=== PATIENT | male | born 1985 | race Caucasian/White ===

== ENCOUNTER 2017-01-27 15:49 | Emergency (ER) | payer BC ==
[~2017-01-27 15:49] MED LIST: AUGMENTIN875 M1; CIPRODEX OTIC7.5 ML OT; FLEXERIL10 MG PO; FLOXIN10 ML; FLOXIN10 ML AU; HYDROCODON-ACE1 EAC7 PO; HYDROCODONE 10/325 PO; JANUVIA; LORTAB 5-325 M1 EACH PO; MECLIZINE HCL25 M2; MEDI-MECLIZINE25 M1 PO; METFORMIN HCL500 M1 PO; METFORMIN PO; NAPROSYN500 MG PO; NITROGLYGERIN0.4 MG SL; NOVOLOG FL100 UNIT/1; PHENERGAN25 M1 PO; PYRIDIUM PO; VICTOZA; ZITHROMAX PO; ZOFRAN; ZOFRAN ODT4 MG/UDTAB PO; [UNRECOGNIZED DRUG - OTHER] PO
== END 2017-01-27 16:32 | disposition home or self-care (01) ==
LOC: SED 15:49
DX: H60.92 Unspecified otitis externa, left ear (principal)
CPT/HCPCS: 99283